=== PATIENT | female | born 1990 | race Caucasian/White ===

== ENCOUNTER 2017-06-09 11:59 | Inpatient (IN) | payer BC ==
[~2017-06-09] VITALS: Ht 165.1 cm; Wt 73.0 kg
[~2017-06-09 11:59] MED LIST changes: -OXYC1TAB63 PO
--- NOTE | 2017-06-10 14:03 | MH ---
cc: MARTÍN GONZÁLES DATE OF ADMISSION: 06/12/2017 ADMITTING DIAGNOSIS 1. Term at 40/41 weeks. 2. macrosomia. HISTORY OF PRESENT ILLNESS The patient is a 27-year-old white female, para 0-0-1-0, with LMP of 08/31/2016, EDC of 06/07/2017. Her course has been benign except for low platelets. At term ultrasound has shown EFW over 4000 grams with a high vertex. She is now admitted for primary section. PAST MEDICAL HISTORY PREVIOUS SURGERY 1. Breast augmentation 2008. 2. Appendectomy 2011. 3. Right finger joint surgery 2013 and 2014. ALLERGIES None. TRANSFUSIONS None. OB HISTORY One previous spontaneous 2014. SOCIAL HISTORY She is , works for [employer] in [employer]. She is . Alcohol, tobacco and drugs are none. PHYSICAL EXAMINATION GENERAL: A well-nourished, well-developed white female. VITAL SIGNS: Stable. HEENT: Exam is normal. CHEST: Clear. HEART: Regular rate. BREASTS: The breasts are symmetrical. ABDOMEN: . EFW 4000 grams. PELVIC: Cervix is long, thick and closed. Vertex is ballottable. ASSESSMENT As above. PLAN She is now admitted for a primary . While in the office I explained the procedure, estimated weight, size, favorable cervix, post dates, and the patient elected to proceed with delivery. MD ROSI Hernandez/JAIME /1:26 PM /1:50 PM
[2017-06-12] VITALS (14 sets, daily range): BP systolic 94–117; BP diastolic 54–81; PULSE 55–105; RESP 16–18; TEMP 97.5–98.4; O2SAT 98–100
[2017-06-12] MEDS ORDERED: LACTATED RINGER'S 1000 ML IV ONE (07:45)
[2017-06-12] MEDS ORDERED: CITRIC ACID-SODIUM CITRATE LIQ 30 ML UDC PO SCH (07:45)
[2017-06-12] MEDS ORDERED: LACTATED RINGER'S 1000 ML IV SCH (07:45)
[2017-06-12] MEDS ORDERED: OXYTOCIN 10 UNIT/ML AMP ONE (07:53)
[2017-06-12 07:58] LABS: BASOPHIL % 0.2 % (0.0-2.0); HEMATOCRIT 39.1 % (35.0-46.0); HEMO FLAGS DIFF FINAL; LYMPH % 13.8 % (9.0-44.0); LYMPHOCYTE # 1.4 TH/MM3 (1.0-4.8); MEAN CELL VOLUME 94.4 FL (80.0-100.0); MEAN CORPUSCULAR HEMOGLOBIN 33.5 PG (27.0-34.0); MEAN CORPUSCULAR HGB CONC 35.5 % (32.0-36.0); MONO % 4.7 % (0.0-8.0); NEUT % 81.3 % (16.0-70.0); PLATELET COUNT 126 TH/MM3 (150-450); RED BLOOD COUNT 4.14 MIL/MM3 (4.00-5.30); RED CELL DISTRIBUTION WIDTH 13.5 % (11.6-17.2); WHITE BLOOD COUNT 9.8 TH/MM3 (4.0-11.0)
[2017-06-12] MEDS ORDERED: ceFAZolin 2 GM PREMIX 50 ML IV SCH (08:00)
[2017-06-12 08:10] LABS: BACTERIA, URINE OCC /hpf; BLOOD, URINE NEG (NEG); GLUCOSE,URINE NEG (NEG); KETONE, URINE 10 mg/dL (NEG); MUCUS URINE FEW /lpf (OCC); NITRITE,URINE NEG (NEG); SQUAMOUS EPITHELIAL CELL URINE 3 /hpf (0-5); URINE COLOR YELLOW (YELLW/STRAW)
[2017-06-12 08:11] LABS: COMMENT (UR) CULT NOT INDICATED; CULTURE IF INDICATED CULT NOT INDICATED
[2017-06-12] MEDS ORDERED: OXYTOCIN 30 UNITS-500ML PREMIX 500 ML ONE (09:30)
[2017-06-12] MEDS ORDERED: ACETAMINOPHEN 1000 MG/100 ML VIAL IV ONE (09:30)
[2017-06-12] MEDS ORDERED: SIMETHICONE 80 MG CHEWABLE TAB PO PRN (10:00)
[2017-06-12] MEDS ORDERED: ONDANSETRON HCL 4 MG/2 ML VIAL IVP PRN (10:00)
[2017-06-12] MEDS ORDERED: KETOROLAC TROMETHAMINE 30 MG/ML (IVP) VIAL IV PUSH PRN (10:00)
[2017-06-12] MEDS ORDERED: ZOLPIDEM TARTRATE 5 MG TAB PO PRN (10:00)
[2017-06-12] MEDS ORDERED: KETOROLAC TROMETHAMINE 60 MG/2 ML (IM) VIAL IM PRN (10:00)
[2017-06-12] MEDS ORDERED: SODIUM CHLORIDE 0.9% FLUSH 5 ML FLUSH IV PRN (10:00)
[2017-06-12] MEDS ORDERED: MEASLES, MUMPS, RUBELLA VACCINE 0.5 ML VIAL SQ ONE (10:00)
[2017-06-12] MEDS ORDERED: oxyCODONE/ACETAMINOPHEN 5 MG/325 MG TAB PO PRN (10:00)
[2017-06-12] MEDS ORDERED: OXYTOCIN 30 UNITS-500ML PREMIX 500 ML IV ONE (10:00)
[2017-06-12] MEDS ORDERED: ONDANSETRON HCL 4 MG/2 ML VIAL ONE (10:01)
[2017-06-12] MEDS ORDERED: MORPHINE SULFATE PF 5 MG/10 ML VIAL ONE (10:01)
[2017-06-12] MEDS ORDERED: KETOROLAC TROMETHAMINE 30 MG/ML (IVP) VIAL ONE (10:28)
[2017-06-12] MEDS: ACETAMINOPHEN 1000 MG/100 ML VIAL IV SCH ×2 (11:00→21:03)
[2017-06-12] MEDS ORDERED: LACTATED RINGER'S 1000 ML INJ 1,000 ML IV SCH (13:00)
[2017-06-12] MEDS: IBUPROFEN 600 MG TAB PO PRN ×2 (16:10→23:45)
[2017-06-12] MEDS: DOCUSATE SODIUM 50 MG/SENNA 8.6 MG TAB PO PRN (16:11)
[2017-06-12] MEDS ORDERED: OXYTOCIN 30 UNITS-500ML PREMIX 500 ML IV PRN (18:15)
[2017-06-12] MEDS ORDERED: SODIUM CHLORIDE 0.9% FLUSH 5 ML FLUSH IV SCH (21:00)
[2017-06-13 00:10] VITALS: BP 96/65; PULSE 65; RESP 16; TEMP 98.2
[2017-06-13] MEDS: ACETAMINOPHEN 1000 MG/100 ML VIAL IV SCH (04:10)
[2017-06-13 04:19] VITALS: BP 107/74; PULSE 67; RESP 16; TEMP 98
[2017-06-13 06:03] LABS: AUTOMATED NEUTROPHIL # 9.6 TH/MM3 (1.8-7.7); BASOPHIL % 0.1 % (0.0-2.0); EOSINOPHIL % 0.3 % (0.0-4.0); HEMATOCRIT 33.5 % (35.0-46.0); HEMO FLAGS DIFF FINAL; LYMPH % 7.7 % (9.0-44.0); LYMPHOCYTE # 0.8 TH/MM3 (1.0-4.8); MEAN CELL VOLUME 96.2 FL (80.0-100.0); MEAN CORPUSCULAR HEMOGLOBIN 32.7 PG (27.0-34.0); MONO % 4.9 % (0.0-8.0); PLATELET COUNT 115 TH/MM3 (150-450); RED BLOOD COUNT 3.48 MIL/MM3 (4.00-5.30); RED CELL DISTRIBUTION WIDTH 13.4 % (11.6-17.2)
[2017-06-13 06:22] LABS: BICARBONATE 28.6 MEQ/L (21.0-32.0); POTASSIUM 3.6 MEQ/L (3.5-5.1)
[2017-06-13] MEDS: DOCUSATE SODIUM 50 MG/SENNA 8.6 MG TAB PO PRN ×2 (08:22→20:02)
[2017-06-13] MEDS: IBUPROFEN 600 MG TAB PO PRN ×3 (08:22→22:01)
[2017-06-13] MEDS: oxyCODONE/ACETAMINOPHEN 5 MG/325 MG TAB PO PRN ×3 (08:25→20:03)
[2017-06-13 08:30] VITALS: BP 100/68; PULSE 68; RESP 18; TEMP 99
[2017-06-13 20:30] VITALS: BP 100/58; PULSE 76; RESP 18; TEMP 98.6
[2017-06-14] MEDS: oxyCODONE/ACETAMINOPHEN 5 MG/325 MG TAB PO PRN ×2 (01:34→05:36)
[2017-06-14 04:30] VITALS: BP 124/83; PULSE 74; PULSE 94; RESP 18; TEMP 99.1
[2017-06-14] MEDS: IBUPROFEN 600 MG TAB PO PRN ×2 (04:48→11:06)
[2017-06-14 08:20] VITALS: BP 112/69; PULSE 78; RESP 16; TEMP 98.8
[2017-06-14] MEDS ORDERED: OXYC1TAB63 PO (08:33)
--- NOTE | 2017-06-14 08:33 | HHI.DCPOC ---
Discharge Care Plan Report Symptoms to Your Doctor -Temperature above 100.5 degrees -Redness, of incision or excessive or foul smelling drainage -Unusual pain or calf pain -Increased vaginal bleeding -Painful or difficulty urinating -Feelings of extreme sadness or anxiety after 2 weeks Goals to Promote Your Health * To prevent worsening of your condition and complications * To maintain your health at the optimal level Directions to Meet Your Goals Take your medications as prescribed Follow your dietary instruction Follow activity as directed Ensure plenty of rest for recovery Drink fluids for hydration Keep your appointments as scheduled Take your immunizations and boosters as scheduled If your symptoms worsen call your PCP, if no PCP go to Urgent Care Center or Emergency Room Smoking is Dangerous to Your Health. Avoid second hand smoke Call the 24-hour crisis hotline for domestic abuse at Maulik Sibley MD Jun 14, 2017 08:33
[2017-06-14] MEDS ORDERED: DIPHTH/TETANUS/ACEL PERTUSSIS (BOOSTER) 0.5 ML VIAL/PFS IM ONE (09:00)
--- NOTE | 2017-06-14 09:43 | MP ---
cc: ELEICERMARTÍN DATE OF SURGERY 06/12/2017 PREOPERATIVE DIAGNOSES 1. at 40-41 weeks. 2. macrosomia. POSTOPERATIVE DIAGNOSES 1. at 40-41 weeks. 2. macrosomia. 3. Delivered. PROCEDURE A primary low transverse section. ANESTHESIA Spinal. SURGEON Martín Sibley MD. TRIM MACHINE OPERATOR NENA Fonseca ESTIMATED BLOOD LOSS 500 cc. FLUIDS 2 liters of crystalloid. OBJECTIVE FINDINGS Following induction of adequate spinal anesthesia, the patient was prepped and draped supine on the operating table in the left lateral tilt position in the usual sterile fashion with bladder being drained by Garland catheterization. The vertex was overriding the symphisis. The abdomen was opened through a Pfannenstiel incision using a knife to cut down through the skin to the fascia. Fascia opened transversely, stripped to the muscles. Rectus muscle split in the midline and the peritoneum opened sharply. The bladder flap was taken down sharply, retracted with [place] blade. The lower uterine segment incised transversely with a knife, extended with blunt dissection. clear fluid. The baby was in the LOT position. The vacuum extractor was applied to the occiput and used gently to extract the head through the abdominal wound. Mouth was suctioned, cord clamped and cut and baby passed to awaiting team. A viable, vigorous female, Apgars 8 and 8. weight 3700 grams, 8 pounds 3 ounces. Cord blood sent for typing. removed and uterine cavity cleaned with laps. The uterus was exteriorized and closed in two layers with running suture, first a running locking stitch of 0 Vicryl, second running imbricating stitch with Vicryl. Posterior inspection uterus, tubes and ovaries normal. Uterus was placed in the cavity, irrigation was performed. No bleeding was evident. The bladder flap was closed with running stitch of 3-0 Vicryl. All lap structures was removed. Counts were correct. The anterior peritoneum closed with running stitch of 2-0 Vicryl. Fascia closed with running locking stitch of 0 Vicryl corner to midline and tied. Subcu closed with 3-0 Vicryl and skin with running subcuticular 3-0 Monocryl. Dermabond applied. All counts correct. The patient was awake and taken to the recovery room in good condition. MD ROSI Hernandez/JAY /9:52 AM /9:28 AM
[2017-06-14] MEDS: DOCUSATE SODIUM 50 MG/SENNA 8.6 MG TAB PO PRN (11:06)
== END 2017-06-14 14:27 | disposition home or self-care (01) | DRG 765 ==
LOC: H2EB 06-12 07:15 → H1EA 06-12 11:37
PROVIDERS: ADMIT Obstetrics & Gynecology; ATTEND Obstetrics & Gynecology
PROC: 10D00Z1 Extraction of Products of Conception, Low, Open Approach (ICD-10-PCS; principal; 2017-06-12)
DX: O36.63X0 Maternal care for excessive fetal growth, third trimester, not applicable or unspecified (principal); O99.12 Other diseases of the blood and blood-forming organs and certain disorders involving the immune mechanism complicating childbirth; D69.6 Thrombocytopenia, unspecified; Z37.0 Single live birth; Z3A.40 40 weeks gestation of pregnancy
CPT/HCPCS: 59025; 76816; 76818; 80048; 81001; 85025; 86850; 86900; 86901; 90715; J0131; J0690; J1885; J2274; J2405; J2590; J3010; J7120

== ENCOUNTER → 2017-06-09 | Outpatient (CLI) | payer BC ==
[~2017-06-09] MED LIST: LEXA10TA PO; OXYC1TAB63 PO; TAB-TAB PO
== END ==
LOC: HPND 07:50
PROVIDERS: ATTEND Obstetrics & Gynecology
DX: O48.0 Post-term pregnancy (principal); D69.6 Thrombocytopenia, unspecified; O36.63X0 Maternal care for excessive fetal growth, third trimester, not applicable or unspecified; O40.9XX0 Polyhydramnios, unspecified trimester, not applicable or unspecified; Z3A.40 40 weeks gestation of pregnancy
CPT/HCPCS: 76816; 76818